=== PATIENT | female | born 1960 | race Caucasian/White ===

== ENCOUNTER → 2016-10-06 | Outpatient (CLI) | payer BC ==
--- NOTE | 2016-10-06 10:06 | MM ---
Reason for exam: follow-up at short interval from prior study. Last mammogram was performed 8 months ago. History: Patient is postmenopausal, history of other cancer, and had first child at age 33. Family history of breast cancer in paternal grandmother at age 60. Benign stereotactic core biopsy of the left breast, July 28, 2000. Physical Findings: Nurse did not find any significant physical abnormalities on exam. MG 3D Diag Mammo W/Cad RT CC and MLO view(s) were taken of the right breast. Prior study comparison: February 20, 2016, right breast MG 3d work up w/cad RT. February 17, 2016, bilateral MG 3d screening mammo w/cad. The breast tissue is heterogeneously dense. This may lower the sensitivity of mammography. Finding: There are stable typically benign calcifications in the right breast. No significant changes in finding since February 20, 2016 and February 17, 2016. These results were verbally communicated with the patient and result sheet given to the patient on 10/06/16. ASSESSMENT: Benign, BI-RAD 2 RECOMMENDATION: Follow-up diagnostic mammogram of both breasts in 6 months. Back on schedule.
== END | disposition home or self-care (01) ==
LOC: RADMAMWWP 08:20
PROVIDERS: ATTEND Internal Medicine Geriatric Medicine
DX: R92.2 Inconclusive mammogram (principal)
CPT/HCPCS: G0206; G0279

== ENCOUNTER → 2017-05-23 | Outpatient (CLI) | payer BC ==
--- NOTE | 2017-05-23 07:44 | MM ---
Reason for exam: follow-up at short interval from prior study. Last mammogram was performed 7 months ago. History: Patient is postmenopausal, history of other cancer, and had first child at age 33. Family history of breast cancer in paternal grandmother at age 60. Benign stereotactic core biopsy of the left breast, July 28, 2000. Physical Findings: Nurse did not find any significant physical abnormalities on exam. MG 3D Diag Mammo W/Cad FAROOQ Bilateral CC and MLO view(s) were taken. Prior study comparison: October 06, 2016, right breast MG 3d diag mammo w/cad RT. February 20, 2016, right breast MG 3d work up w/cad RT. The breast tissue is heterogeneously dense. This may lower the sensitivity of mammography. Finding: There are typically benign calcifications in both breasts similar to prior exams back to 2015. No suspicious abnormality. No significant changes in finding since February 20, 2016 and October 06, 2016. These results were verbally communicated with the patient and result sheet given to the patient on 05/23/17. ASSESSMENT: Benign, BI-RAD 2 RECOMMENDATION: Routine screening mammogram of both breasts in 1 year.
== END | disposition home or self-care (01) ==
LOC: RADMAMWWP 07:03
PROVIDERS: ATTEND Internal Medicine Geriatric Medicine
DX: Z09 Encounter for follow-up examination after completed treatment for conditions other than malignant neoplasm (principal); Z87.2 Personal history of diseases of the skin and subcutaneous tissue
CPT/HCPCS: 77066; G0279

== ENCOUNTER → 2018-07-26 | Outpatient (CLI) | payer BC ==
--- NOTE | 2018-07-26 15:58 | BD ---
EXAMINATION TYPE: Axial Bone Density DATE OF EXAM: 07/26/2018 COMPARISON: NONE CLINICAL HISTORY: Osteoporosis screening. Postmenopausal female. Height: 67 IN Weight: 189 LBS FRAX RISK QUESTIONS: Family History (Parent hip fracture): YES MOTHER RISK FACTORS HISTORY OF: Active: YES Diet low in dairy products/other sources of calcium: YES Postmenopausal woman: AGE 54 MEDICATIONS: Additional Medications: BLOOD PRESSURE AND CHOLESTEROL MEDS EXAM MEASUREMENTS: Bone mineral densitometry was performed using the Card[employer] System. Bone mineral density as measured about the Lumbar spine is: ----- L1-L4(G/cm2): 1.172 T Score Values are as follows: ----- L2: 0.1 ----- L3: 0.3 ----- L4: -0.1 ----- L1-L4: -0.1 Bone mineral density BASELINE Bone mineral density about the R hip (g/cm2): 1.021 Bone mineral density about the L hip (g/cm2): 0.994 T Score values are as follows: -----R Neck: -0.1 -----L Neck: -0.3 -----R Total: 0.3 -----L Total: 0.4 Bone mineral density BASELINE IMPRESSION: Normal (Values between +1 and -1 indicate normal bone mass). Consider repeating this study in 5 year s or sooner if there is some new clinical indication. NOTE: T-SCORE=SD OF THE YOUNG ADULT MEAN.
--- NOTE | 2018-07-27 13:45 | MM ---
Reason for exam: screening (asymptomatic). Last mammogram was performed 1 year and 2 months ago. History: Patient is postmenopausal, history of other cancer, and had first child at age 33. Family history of breast cancer in paternal grandmother at age 60. Benign stereotactic core biopsy of the left breast, July 28, 2000. Physical Findings: A clinical breast exam by your physician is recommended on an annual basis and results should be correlated with mammographic findings. MG 3D Screening Mammo W/Cad Bilateral CC and MLO view(s) were taken. Prior study comparison: May 23, 2017, bilateral MG 3d diag mammo w/cad [facility]OO[facility]. October 06, 2016, right breast MG 3d diag mammo w/cad RT. The breast tissue is heterogeneously dense. This may lower the sensitivity of mammography. Previous mammotome biopsy in the left breast. Stable regional punctate calcifications bilateral breasts. Asymmetric density posterior and lateral left breast is more defined, partially disperses on 3D. ASSESSMENT: Incomplete: need additional imaging evaluation, BI-RAD 0 RECOMMENDATION: Special view mammogram of the left breast. If lesion persists on supplemental views, image directed ultrasound is recommended. [facility] will attempt to contact patient to return for supplemental views and ultrasound if indicated.
== END | disposition home or self-care (01) ==
LOC: RADMAMWWP 14:00
PROVIDERS: ATTEND Internal Medicine Geriatric Medicine
DX: Z12.31 Encounter for screening mammogram for malignant neoplasm of breast (principal); Z13.820 Encounter for screening for osteoporosis
CPT/HCPCS: 77063; 77067; 77080

== ENCOUNTER → 2018-08-04 | Outpatient (CLI) | payer BC ==
--- NOTE | 2018-08-04 12:22 | MM ---
Reason for exam: additional evaluation requested from abnormal screening. Last mammogram was performed less than 1 month ago. History: Patient is postmenopausal, history of other cancer, and had first child at age 33. Family history of breast cancer in paternal grandmother at age 60. Benign stereotactic core biopsy of the left breast, July 28, 2000. Physical Findings: Nurse did not find any significant physical abnormalities on exam. MG 3D Work Up W/Cad LT Spot compression CC, LM, and CCRM view(s) were taken of the left breast. Prior study comparison: July 26, 2018, bilateral MG 3d screening mammo w/cad. May 23, 2017, bilateral MG 3d diag mammo w/cad F[facility]OO[facility]. No distinct lesion persists on additional views. These results were verbally communicated with the patient and result sheet given to the patient on 08/04/18. ASSESSMENT: Benign, BI-RAD 2 RECOMMENDATION: Return to routine screening mammogram schedule for both breasts.
== END | disposition home or self-care (01) ==
LOC: RADMAMWWP 10:20
PROVIDERS: ATTEND Internal Medicine Geriatric Medicine
DX: R92.8 Other abnormal and inconclusive findings on diagnostic imaging of breast (principal)
CPT/HCPCS: 77061; 77065

== ENCOUNTER → 2018-11-21 | Outpatient (CLI) | payer BC ==
[2018-11-21 11:07] LABS: Basophils % (A) 0 %; Eosinophils # (A) 0.1 k/uL (0-0.7); Eosinophils % (A) 3 %; HCT 39.7 % (34.0-46.0); Lymphocytes # (A) 1.5 k/uL (1.0-4.8); Lymphocytes % (A) 34 %; MCH 30.7 pg (25.0-35.0); MCHC 32.8 g/dL (31.0-37.0); MCV 93.7 fL (80.0-100.0); Monocytes # (A) 0.2 k/uL (0-1.0); Monocytes % (A) 4 %; Neutrophils # (A) 2.4 k/uL (1.3-7.7); Neutrophils % (A) 57 %; Platelet Count 267 k/uL (150-450); RBC 4.24 m/uL (3.80-5.40); RDW 13.2 % (11.5-15.5); WBC 4.3 k/uL (3.8-10.6)
[2018-11-21 17:50] LABS: African American GFR (CKD) 92.9 (60.0-200.0); Albumin 4.4 g/dL (3.80-4.90); Albumin/Globulin Ratio 2.2 (1.60-3.17); Anion Gap 7.7 mmol/L (4.00-12.00); BUN/Creat Ratio 26.25 Ratio (12.00-20.00); Calcium 9.5 mg/dL (8.7-10.3); Carbon Dioxide 27.3 mmol/L (21.6-31.8); LDL Cholesterol,Calculated 115.8 mg/dL (0.0-131.0); Potassium 4.5 mmol/L (3.5-5.5); Total Bilirubin 0.8 mg/dL (0.3-1.2); Total Protein 6.4 g/dL (6.2-8.2); VLDL Calculation 13.2 mg/dL (5.00-40.00)
== END | disposition home or self-care (01) ==
LOC: LABWHC1 10:17
PROVIDERS: ATTEND Internal Medicine Geriatric Medicine
DX: Z00.00 Encounter for general adult medical examination without abnormal findings (principal); R00.1 Bradycardia, unspecified; E78.2 Mixed hyperlipidemia; R79.9 Abnormal finding of blood chemistry, unspecified
CPT/HCPCS: 36415; 80053; 80061; 83036; 84439; 84443; 85025

== ENCOUNTER 2019-10-29 08:16 | Emergency (ER) | payer BC ==
[2019-10-29 08:22] VITALS: RESP 18
[2019-10-29] MEDS ORDERED: MORPHINE SULFATE 4 MG/ML SYRINGE IM STA (08:36)
--- NOTE | 2019-10-29 08:40 | ED ---
General Adult HPI - General Chief complaint: Fall Stated complaint: fall Time Seen by Provider: 10/29/19 08:25 Source: patient, RN notes reviewed Mode of arrival: wheelchair Limitations: no limitations - History of Present Illness Initial comments: Patient is a pleasant 59-year-old female presenting to the emergency Department with left buttocks pain. Patient had trip and fall yesterday. Patient landed on her left buttocks. Patient has significant discomfort with movement there. Only mild discomfort at rest. No history of similar symptoms previously. Patient is able to stand however extreme difficulty with attempted ambulation. No head injury or loss of consciousness. No neck or back pain. No abdominal pain. - Related Data Home Medications Medication Instructions Recorded Confirmed Atorvastatin Calcium [Lipitor] 10 mg PO HS 10/29/19 10/29/19 Multivitamins, Thera [Multivitamin 1 tab PO DAILY 10/29/19 10/29/19 (formulary)] Valsartan/Hydrochlorothiazide 1 tab PO DAILY 10/29/19 10/29/19 [Valsartan-Hctz 160-12.5 mg Tab] Previous Rx's Medication Instructions Recorded Metaxalone [Metaxall] 800 mg PO QID PRN #12 tablet 10/29/19 Allergies Allergy/AdvReac Type Severity Reaction Status Date / Time amoxicillin [From Augmentin] Allergy Diarrhea Verified 10/29/19 09:02 clavulanic acid Allergy Diarrhea Verified 10/29/19 09:02 [From Augmentin] Sulfa (Sulfonamide Allergy Rash/Hives Verified 10/29/19 09:02 Antibiotics) Review of Systems ROS Statement: Those systems with pertinent positive or pertinent negative responses have been documented in the HPI. ROS Other: All systems not noted in ROS Statement are negative. Constitutional: Denies: fever Eyes: Denies: eye pain ENT: Denies: ear pain Respiratory: Denies: cough Cardiovascular: Denies: chest pain Endocrine: Denies: fatigue Gastrointestinal: Denies: abdominal pain Genitourinary: Denies: dysuria Musculoskeletal: Reports: as per HPI. Denies: back pain Skin: Denies: rash Neurological: Denies: weakness Past Medical History Past Medical History: Hyperlipidemia, Hypertension History of Any Multi-Drug Resistant Organisms: None Reported Past Surgical History: No Surgical Hx Reported Past Psychological History: No Psychological Hx Reported Smoking Status: Never smoker Past Alcohol Use History: Occasional Past Drug Use History: None Reported General Exam Limitations: no limitations General appearance: alert, in no apparent distress Head exam: Present: normocephalic Eye exam: Present: normal appearance Neck exam: Present: normal inspection Respiratory exam: Present: normal lung sounds bilaterally Cardiovascular Exam: Present: regular rate, normal rhythm Expanded Peripheral pulses: 2+: Posterior Tibialis (R), Posterior Tibialis (L), Dorsalis Pedis (R), Dorsalis Pedis (L) GI/Abdominal exam: Present: soft. Absent: distended, tenderness Extremities exam: Present: tenderness (Moderate tenderness left lower gluteal region. Mild tenderness left lateral hip), other (No discomfort with passive range of motion. Distal motor sensory is intact.) Back exam: Present: normal inspection. Absent: vertebral tenderness Neurological exam: Present: alert Expanded Sensory exam: Lower Extremity Light Touch: Normal Motor strength exam: RLE: 5, LLE: 5 (Limited motion and left hip secondary to discomfort. Distally extremity is normal strength) Psychiatric exam: Present: normal affect, normal mood Skin exam: Present: normal color Course Vital Signs 10/29/19 08:19 Temperature 98.1 F Pulse Rate 73 Respiratory 18 Rate Blood Pressure 152/100 O2 Sat by Pulse 99 Oximetry Medical Decision Making - Medical Decision Making Patient reevaluated and resting comfortably in bed. Patient and family updated on results. Patient is comfortable with discharge home. - Radiology Data Radiology results: image reviewed (Left hip and pelvis x-rays show no fracture) Disposition Clinical Impression: Fall, Contusion, hip Disposition: HOME SELF-CARE Condition: Stable Instructions (If sedation given, give patient instructions): Hip Contusion (ED) Additional Instructions: Please follow-up with primary care physician in the next couple days for recheck. [id number] Tylenol or Motrin as needed. Return for inability to walk, increased pain, worsening or changing symptoms or other concerns. Prescription for muscle relaxer sent to [facility] pharmacy in [facility] Prescriptions: Metaxalone [Metaxall] 800 mg PO QID PRN #12 tablet PRN Reason: Pain Is patient prescribed a controlled substance at d/c from ED?: No Referrals: Leonardo Mortensen MD [Primary Care Provider] - 1-2 days Time of Disposition: 09:41
--- NOTE | 2019-10-29 09:26 | XR ---
EXAMINATION TYPE: XR Hip LT and AP Pelvis DATE OF EXAM: 10/29/2019 COMPARISON: NONE HISTORY: Trauma and pain TECHNIQUE: A single AP view of the pelvis is obtained. Two views of the left hip are obtained. FINDINGS: There is no acute fracture/dislocation evident in the pelvis. The hip and sacroiliac join ts appear symmetric and unremarkable. The overlying soft tissue appears unremarkable. Two views of left hip show no acute fracture or dislocation. No focal lytic or sclerotic lesion seen in the proximal left femur. The overlying soft tissue is unremarkable. Metallic device superimpose d over the right superior pubic ramus. Possible bone island within the left femoral head. Probable ph leboliths within the pelvis. IMPRESSION: There is no acute fracture or dislocation in the pelvis or left hip.
[2019-10-29 09:57] VITALS: BP 128/75; PULSE 71; TEMP 98.2
== END 2019-10-29 09:56 | disposition home or self-care (01) ==
LOC: EC 08:16
DX: S70.02XA Contusion of left hip, initial encounter (principal); I10 Essential (primary) hypertension; E78.5 Hyperlipidemia, unspecified; Z79.899 Other long term (current) drug therapy; Z88.0 Allergy status to penicillin; Z88.1 Allergy status to other antibiotic agents; Z88.2 Allergy status to sulfonamides; W01.0XXA Fall on same level from slipping, tripping and stumbling without subsequent striking against object, initial encounter
CPT/HCPCS: 73502; 99283; 96372; J2270

== ENCOUNTER → 2019-11-12 | Outpatient (CLI) | payer BC ==
--- NOTE | 2019-11-12 15:56 | XR ---
EXAMINATION TYPE: XR Hip Complete LT DATE OF EXAM: 11/12/2019 COMPARISON: NONE HISTORY: Pain TECHNIQUE: 2 views submitted FINDINGS: There is no evidence of erosive change or acute fracture. Calcification pelvis likely vascular. Mild concentric narrowing the joint space. Hypertrophic change of the acetabulum. Small bone island overly ing the femoral head. IMPRESSION: 1. No evidence of acute fracture or dislocation. 2. Mild arthropathy correlate for femoral acetabular impingement.
== END | disposition home or self-care (01) ==
LOC: RADXRMAIN 15:26
PROVIDERS: ATTEND Internal Medicine Geriatric Medicine
DX: M12.852 Other specific arthropathies, not elsewhere classified, left hip (principal)
CPT/HCPCS: 73502

== ENCOUNTER → 2019-12-19 | Outpatient (CLI) | payer BC ==
--- NOTE | 2019-12-24 09:18 | MM ---
Reason for exam: screening (asymptomatic). Last mammogram was performed 1 year and 4 months ago. History: Patient is postmenopausal, history of other cancer, and had first child at age 33. Family history of breast cancer in paternal grandmother at age 60. Benign stereotactic core biopsy of the left breast, July 28, 2000. Physical Findings: A clinical breast exam by your physician is recommended on an annual basis and results should be correlated with mammographic findings. MG 3D Screening Mammo W/Cad Bilateral CC and MLO view(s) were taken. Prior study comparison: August 04, 2018, left breast MG 3d work up w/cad LT. July 26, 2018, bilateral MG 3d screening mammo w/cad. The breast tissue is heterogeneously dense. This may lower the sensitivity of mammography. Finding: There are round, segmental calcifications in the lower inner quadrant, middle position of the left breast 5cm from the nipple, present previously, better seen, check for stability. Previous mammotome biopsy in the left breast. New finding since August 04, 2018 and July 26, 2018. ASSESSMENT: Incomplete: need additional imaging evaluation, BI-RAD 0 RECOMMENDATION: Special view mammogram of the left breast. [facility] will attempt to contact patient to return for supplemental views.
== END | disposition home or self-care (01) ==
LOC: RADMAMWWP 06:59
PROVIDERS: ATTEND Internal Medicine Geriatric Medicine
DX: Z12.31 Encounter for screening mammogram for malignant neoplasm of breast (principal)
CPT/HCPCS: 77063; 77067

== ENCOUNTER → 2019-12-28 | Outpatient (CLI) | payer BC ==
--- NOTE | 2019-12-31 08:15 | MM ---
Reason for exam: additional evaluation requested from abnormal screening. Last mammogram was performed less than 1 month ago. History: Patient is postmenopausal, history of other cancer, and had first child at age 33. Family history of breast cancer in paternal grandmother at age 60. Benign stereotactic core biopsy of the left breast, July 28, 2000. Physical Findings: Nurse did not find any significant physical abnormalities on exam. MG 3D Work Up W/Cad LT CC with magnification, LM with magnification, and LM view(s) were taken of the left breast. Prior study comparison: July 26, 2018, bilateral MG 3d screening mammo w/cad. May 23, 2017, bilateral MG 3d diag mammo w/cad [facility]OO[facility]. February 17, 2016, bilateral MG 3d screening mammo w/cad. The breast tissue is heterogeneously dense. This may lower the sensitivity of mammography. Grouped punctate calcifications medially on magnification view may have increased minimally from 2019, 6 month follow up recommended. These results were verbally communicated with the patient and result sheet given to the patient on 12/28/19. ASSESSMENT: Probably benign, BI-RAD 3 RECOMMENDATION: Follow-up diagnostic mammogram of the left breast in 6 months.
== END | disposition home or self-care (01) ==
LOC: RADMAMWWP 13:40
PROVIDERS: ATTEND Internal Medicine Geriatric Medicine
DX: R92.2 Inconclusive mammogram (principal)
CPT/HCPCS: 77061; 77065

== ENCOUNTER → 2020-10-01 | Outpatient (CLI) | payer BC ==
--- NOTE | 2020-10-01 11:43 | MM ---
Reason for exam: follow-up at short interval from prior study. Last mammogram was performed 9 months ago. History: Patient is postmenopausal, history of other cancer, and had first child at age 33. Family history of breast cancer in paternal grandmother at age 60. Benign stereotactic core biopsy of the left breast, July 28, 2000. Physical Findings: Nurse did not find any significant physical abnormalities on exam. MG 3D Diag Mammo W/Cad LT CC, MLO, LM, and CC with magnification view(s) were taken of the left breast. Prior study comparison: December 28, 2019, left breast MG 3d work up w/cad LT. December 19, 2019, bilateral MG 3d screening mammo w/cad. The breast tissue is heterogeneously dense. This may lower the sensitivity of mammography. Stable group of punctate calcifications at 7-8 o'clock, 6cm from nipple. Probably benign. These results were verbally communicated with the patient and result sheet given to the patient on 10/01/20. ASSESSMENT: Probably benign, BI-RAD 3 RECOMMENDATION: Follow-up diagnostic mammogram of both breasts in 3 months. Back on schedule for December 2020.
== END | disposition home or self-care (01) ==
LOC: RADMAMWWP 09:47
PROVIDERS: ATTEND Internal Medicine Geriatric Medicine
DX: R92.2 Inconclusive mammogram (principal); R92.1 Mammographic calcification found on diagnostic imaging of breast; Z78.0 Asymptomatic menopausal state; Z80.3 Family history of malignant neoplasm of breast
CPT/HCPCS: 77061; 77065

== ENCOUNTER → 2021-01-22 | Outpatient (CLI) | payer BC ==
--- NOTE | 2021-01-23 10:41 | MM ---
Reason for exam: follow-up at short interval from prior study. Last mammogram was performed 4 months ago. History: Patient is postmenopausal, history of other cancer, and had first child at age 33. Family history of breast cancer in paternal grandmother at age 60. Benign stereotactic core biopsy of the left breast, July 28, 2000. Physical Findings: Nurse did not find any significant physical abnormalities on exam. MG 3D Diag Mammo W/Cad FAROOQ Bilateral CC and MLO view(s) were taken. Prior study comparison: October 01, 2020, left breast MG 3d diag mammo w/cad LT. December 28, 2019, left breast MG 3d work up w/cad LT. December 19, 2019, bilateral MG 3d screening mammo w/cad. May 23, 2017, bilateral MG 3d diag mammo w/cad [facility]OOQ. February 17, 2016, bilateral MG 3d screening mammo w/cad. The breast tissue is heterogeneously dense. This may lower the sensitivity of mammography. Bilateral diffuse punctate calcifications are unchanged for 1 year. Anterior superior asymmetric density left MLO does not persist on the end compression view. Additional 1 year follow up recommended. These results were verbally communicated with the patient and result sheet given to the patient on 01/22/21. ASSESSMENT: Probably benign, BI-RAD 3 RECOMMENDATION: Follow-up diagnostic mammogram of both breasts in 1 year.
== END | disposition home or self-care (01) ==
LOC: RADMAMWWP 12:58
PROVIDERS: ATTEND Internal Medicine Geriatric Medicine
DX: R92.1 Mammographic calcification found on diagnostic imaging of breast (principal); Z85.9 Personal history of malignant neoplasm, unspecified; Z80.3 Family history of malignant neoplasm of breast; Z78.0 Asymptomatic menopausal state
CPT/HCPCS: 77062; 77066

== ENCOUNTER → 2022-01-25 | Outpatient (CLI) | payer BC ==
--- NOTE | 2022-01-25 09:55 | MM ---
Reason for Exam: Additional evaluation requested from prior study. Last screening mammogram was performed 12 month(s) ago. Patient History: Menarche at age 12. First Full-Term at age 33. Late child-bearing (after 30). Postmenopausal. Other cancer. 07/28/2000, Benign Stereotactic Core Biopsy on the left side. Paternal grandmother had breast cancer, age 60. Risk Values: Priya 5 year model risk: 2.4%. NCI Lifetime model risk: 9.5%. Prior Study Comparison: 01/07/2000 Bilateral Screening Mammogram, [facility]. 01/19/2000 Bilateral Special View Mammogram, [facility]. 07/21/2000 Bilateral Special View Mammogram, [facility]. 02/20/2001 Bilateral Special View Mammogram, [facility]. 03/28/2002 Bilateral Special View Mammogram, [facility]. 04/18/2003 Bilateral Diagnostic Mammogram, [facility]. 04/20/2004 Bilateral Screening Mammogram, [facility]. 11/11/2004 Bilateral Diagnostic Mammogram, [facility]. 01/11/2006 Bilateral Diagnostic Mammogram, [facility]. 08/25/2006 Right Diagnostic Mammogram, [facility]. 03/16/2007 Bilateral Screening Mammogram, [facility]. 03/23/2007 Bilateral Diagnostic Mammogram, [facility]. 05/10/2008 Bilateral Screening Mammogram, [facility]. 07/18/2008 Left Diagnostic Ultrasound, [facility]. 07/07/2009 Bilateral Screening Mammogram, [facility]. 09/30/2010 Bilateral Screening Mammogram, [facility]. 12/22/2011 Bilateral Screening Mammogram, [facility]. 05/15/2013 Bilateral Screening Mammogram, [facility]. 08/12/2014 Bilateral Screening Mammogram, [facility]. 02/17/2016 Bilateral Screening Mammogram, [facility]. 02/20/2016 Right Diagnostic Mammogram, [facility]. 10/06/2016 Right Diagnostic Mammogram, [facility]. 05/23/2017 Bilateral Diagnostic Mammogram, [facility]. 07/26/2018 Bilateral Screening Mammogram, [facility]. 08/04/2018 Left Diagnostic Mammogram, [facility]. 12/19/2019 Bilateral Screening Mammogram, [facility]. 12/28/2019 Left Diagnostic Mammogram, [facility]. 10/01/2020 Left Diagnostic Mammogram, [facility]. 01/22/2021 Bilateral Diagnostic Mammogram, [facility]. Tissue Density: The breast tissue is heterogeneously dense. This may lower the sensitivity of mammography. Findings: Analyzed By CAD. Bilateral diffuse punctate calcifications are unchanged from prior examination. Anterosuperior asymmetric density in the left MLO does not persist on compression view. No new suspicious masses or worrisome cluster microcalcifications. Overall Assessment: Probably benign, BI-RAD 3 Management: Diagnostic Mammogram of both breasts in 1 year. A clinical breast exam by your physician is recommended on an annual basis and results should be correlated with mammographic findings. This exam should not preclude additional follow-up of suspicious palpable abnormalities. Results were given to the patient verbally at the time of exam. Electronically signed and approved by: Ignacio Quinn D.O.
== END | disposition home or self-care (01) ==
LOC: RADMAMWWP 09:04
PROVIDERS: ATTEND Internal Medicine Geriatric Medicine
DX: R92.8 Other abnormal and inconclusive findings on diagnostic imaging of breast (principal); Z78.0 Asymptomatic menopausal state; Z80.3 Family history of malignant neoplasm of breast
CPT/HCPCS: 77062; 77066

== ENCOUNTER → 2022-04-13 | Outpatient (CLI) | payer BC ==
--- NOTE | 2022-04-13 16:58 | US ---
EXAMINATION TYPE: US transvaginal DATE OF EXAM: 04/13/2022 COMPARISON: NONE CLINICAL HISTORY: R10.2 PELVIC AND PERINEAL PAIN. Family hx of CA TECHNIQUE: Transvaginal (TV EXAM MEASUREMENTS: Uterus: 7.3 x 3.1 x 3.3 cm Endometrial Stripe: .3 cm Right Ovary: 2.0 x 1.2 x 1.6 cm 1. Uterus: Anteverted wnl 2. Endometrium: wnl 3. Right Ovary: wnl 4. Left Ovary: Obscured by overlying bowel gas 5. Bilateral Adnexa: wnl 6. Posterior cul-de-sac: wnl IMPRESSION: 1. No acute ultrasound abnormality of the pelvis.
== END | disposition home or self-care (01) ==
LOC: RADUSWWP 12:24
PROVIDERS: ATTEND Internal Medicine Geriatric Medicine
DX: R10.2 Pelvic and perineal pain (principal)
CPT/HCPCS: 76830

== ENCOUNTER → 2024-03-15 | Outpatient (CLI) | payer MEDICARE, BC ==
--- NOTE | 2024-03-15 11:44 | MM ---
Reason for Exam: Screening (asymptomatic). Last screening mammogram was performed 12 month(s) ago. Patient History: Menarche at age 12. First Full-Term at age 33. Late child-bearing (after 30). Postmenopausal. Other cancer. 07/28/2000, Benign Stereotactic Core Biopsy on the left side. Paternal grandmother had breast cancer, age 60. Risk Values: Priya 5 year model risk: 2.5%. NCI Lifetime model risk: 8.9%. Prior Study Comparison: 01/22/2021 Bilateral Diagnostic Mammogram, [facility]. 01/25/2022 Bilateral MG 3D diag mammo w/cad [facility], [facility]. 02/28/2023 Bilateral MG 3D diag mammo w/cad [facility]OOQ, [facility]. Tissue Density: The breasts are heterogeneously dense, which may obscure small masses. Findings: Analyzed By CAD. Left breast biopsy clip. Right breast: There is no suspicious group of microcalcifications or new suspicious mass. Left breast: There is no suspicious group of microcalcifications or new suspicious mass. Overall Assessment: Benign, BI-RAD 2 Management: Screening Mammogram of both breasts in [address] [facility] will attempt to contact patient to return for supplemental views and ultrasound if indicated. Patient should continue monthly self-breast exams. A clinical breast exam by your physician is recommended on an annual basis. This exam should not preclude additional follow-up of suspicious palpable abnormalities. Note on Priya scores and lifetime risk: 1. A Priya score greater than 3% is considered moderate risk. If this is the case, consider specialist referral to assess eligibility for a risk reducing agent. 2. If overall lifetime risk for the development of breast cancer is 20% or higher, the patient may qualify for future screening with alternating mammogram and breast MRI. [facility], , 03/15/2024 11:41 AM. Electronically signed and approved by: Dominic Thornton DO
== END | disposition home or self-care (01) ==
LOC: RADMAMWWP 07:04
PROVIDERS: ATTEND Internal Medicine Geriatric Medicine
CPT/HCPCS: 77063; 77067

== ENCOUNTER → 2024-06-06 | Outpatient (CLI) | payer MEDICARE, BC ==
--- NOTE | 2024-06-06 15:40 | XR ---
EXAMINATION TYPE: XR lumbar spine 2 or 3V DATE OF EXAM: 06/06/2024 3:24 PM COMPARISON: None CLINICAL INDICATION: Female, 64 years old with history of M54.50; PHH, pain TECHNIQUE: XR lumbar spine 2 or 3V - Frontal, lateral and coned in L5-S1 lateral views of the spine. FINDINGS: No evidence of any acute osseous pathology. No evidence of loss of vertebral body height i s seen. There is normal alignment of the lumbar vertebral bodies. Scattered disc space narrowing. Mul tilevel marginal osteophyte formation throughout the visualized spine. There is facet joint arthropat hy throughout the spine. Scattered at least mild neural foraminal stenosis. IMPRESSION: 1. No acute fracture. 2. Moderate multilevel disc degeneration. [facility], , 06/06/2024 3:38 PM
== END | disposition home or self-care (01) ==
LOC: RADXRMAIN 15:05
PROVIDERS: ATTEND Physician Assistant
DX: M51.360 Other intervertebral disc degeneration, lumbar region with discogenic back pain only (principal)
CPT/HCPCS: 72100

== ENCOUNTER → 2024-06-15 | Outpatient (CLI) | payer MEDICARE, BC ==
--- NOTE | 2024-06-15 10:01 | US ---
EXAMINATION TYPE: US abdomen complete DATE OF EXAM: 06/15/2024 COMPARISON: NONE CLINICAL INDICATION: Female, 64 years old with history of R10.9 UNSPECIFIED ABDOMINAL PAIN; right elizabeth ed abdominal pain x a couple months TECHNIQUE: Grayscale and color Doppler imaging of the abdomen was performed. FINDINGS: EXAM MEASUREMENTS: Liver Length: 13.4 cm Gallbladder Wall: 0.10 cm CBD: 0.4 cm, color Doppler imaging was utilized to isolate the common bile duct for measurement. Spleen: 9.3 cm Right Kidney: 10.8 x 5.3 x 4.2 cm Left Kidney: 10.9 x 4.9 x 4.7 cm HAIR DRYER NOTES: slightly limited due to overlying bowel gas Pancreas: wnl Liver: wnl, no dilated ducts, masses or cysts. Gallbladder: wnl Evidence for sonographic Llanos's sign: no CBD: wnl Spleen: wnl Right Kidney: wnl, No hydronephrosis, calculi or masses seen Left Kidney: wnl, No hydronephrosis, calculi or masses seen Upper IVC: wnl Abd Aorta: wnl The liver is homogenous. The intrahepatic portion of the IVC and proximal abdominal aorta are within normal limits. There is no evidence of cholelithiasis. Common bile duct is unremarkable. The visu alized portions of the pancreas are homogenous. The spleen is unremarkable. Kidneys are symmetric a nd free of hydronephrosis. No renal lesions are seen. IMPRESSION: No ultrasound evidence for acute abdominal process. [facility], , 06/15/2024 9:59 AM
== END | disposition home or self-care (01) ==
LOC: RADUSWWP 08:59
PROVIDERS: ATTEND Internal Medicine Geriatric Medicine
DX: R10.9 Unspecified abdominal pain (principal)
CPT/HCPCS: 76700